=== PATIENT | male | born 1950 | race Caucasian/White ===

== ENCOUNTER 2024-06-13 07:40 | Day surgery (SDC) | payer OTHER ==
[2024-06-09 09:21] VITALS: BMI 25.3
[2024-06-13 10:01] VITALS: RESP 18; TEMP 97.5
[2024-06-13 10:25] VITALS: BP 106/54; PULSE 72
== END 2024-06-13 10:20 | disposition home or self-care (01) ==
LOC: FASU-ENDO 07:40
PROVIDERS: ATTEND Internal Medicine Gastroenterology
PROC: 0DJD8ZZ Inspection of Lower Intestinal Tract, Via Natural or Artificial Opening Endoscopic (ICD-10-PCS; principal; 2024-06-13 09:26)
DX: Z12.11 Encounter for screening for malignant neoplasm of colon (principal)